=== PATIENT | male | born 1950 | race African-American/Black ===

== ENCOUNTER 2020-10-29 04:02 | Emergency (ER) | payer MEDICARE, OTHER ==
[~2020-10-29] VITALS: Ht 177.8 cm; Wt 75.0 kg
[2020-10-29 04:05] VITALS: BP 141/72
[2020-10-29] MEDS ORDERED: PANTOPRAZOLE SODIUM 40 MG/VIAL IV STA (04:11)
[2020-10-29] MEDS ORDERED: VISCOUS LIDOCAINE 2% 15 ML UDC PO STA (04:11)
[2020-10-29] MEDS ORDERED: MAGNESIUM/ALUMINUM HYDROXIDE/SIMETHICONE 30ML UDC PO STA (04:11)
[2020-10-29 04:51] LABS: BASOPHILS % 0.5 % (0.0-2.0); EOSINOPHILS % 0.2 % (0.0-5.0); HEMATOCRIT. 44.3 % (42.0-52.0); HEMOGLOBIN. 14.7 g/dL (14.0-18.0); LYMPHOCYTES % 12.4 % (20.0-50.0); MEAN CORPUSCULAR HEMOGLOBIN 31.8 pg (28.0-32.0); MEAN CORPUSCULAR VOLUME 95.4 fL (80.0-94.0); MEAN PLATELET VOLUME 7.9 fl (7.4-10.4); MONOCYTES % 6.8 % (2.0-8.0); NEUTROPHILS % 80.1 % (40.0-76.0); PLATELET 262 x1000/uL (130-400); RED BLOOD CELL COUNT 4.64 mill/uL (4.7-6.1); RED CELL DISTRIBUTION WIDTH 13.7 % (11.6-14.6)
[2020-10-29 05:00] LABS: CHLORIDE 106 mEq/L (98-107)
[2020-10-29 05:02] LABS: INR 1.1; PROTHROMBIN TIME 11.4 sec (9.6-11.0)
[2020-10-29 05:05] LABS: ETHANOL BLOOD < 10 mg/dL
[2020-10-29 06:49] LABS: CLARITY URINE CLEAR (CLEAR); COLOR URINE YELLOW (YELLOW); KETONES URINE NEGATIVE (NEGATIVE); LEUKOCYTE ESTERASE URINE NEGATIVE (NEGATIVE); NITRITE URINE NEGATIVE (NEGATIVE); OCCULT BLOOD URINE NEGATIVE (NEGATIVE); PROTEIN URINE NEGATIVE (NEGATIVE); SPECIFIC GRAVITY URINE 1.021 (1.005-1.030); UROBILINOGEN URINE 0.2 E.U./dL (0.2-1.0)
[2020-10-29 07:00] LABS: *BARBITURATES SCREEN URINE NEGATIVE (NEGATIVE); *BENZODIAZEPINES SCREEN URINE NEGATIVE (NEGATIVE); *COCAINE SCREEN URINE NEGATIVE (NEGATIVE); CANNABINOID URINE SCREEN PRESUMTIVE POSITIVE (NEGATIVE); METHADONE URINE SCREEN NEGATIVE (NEGATIVE); OPIATES URINE SCREEN NEGATIVE (NEGATIVE); PHENCYCLIDINE URINE SCREEN NEGATIVE (NEGATIVE)
[2020-10-29 07:01] LABS: *AMPHETAMINES SCREEN URINE NEGATIVE (NEGATIVE)
== END 2020-10-29 10:16 | disposition home or self-care (01) ==
LOC: ER 04:02
DX: K57.32 Diverticulitis of large intestine without perforation or abscess without bleeding (principal); F12.10 Cannabis abuse, uncomplicated
CPT/HCPCS: 36415; 71045; 74176; 80053; 80305; 80320; 81003; 85025; 93005; 99285; G0480